=== PATIENT | female | born 1940 | race Caucasian/White ===

== ENCOUNTER 2016-09-01 08:43 | Inpatient (IN) | payer MEDICARE ==
[~2016-09-01] VITALS: Ht 154.9 cm; Wt 76.3 kg
[2016-09-01] VITALS (18 sets, daily range): BP systolic 113–150; BP diastolic 52–82
[2016-09-01 09:26] LABS: MEAN PLATELET VOLUME 12.2 FL (6.0-9.5); PLATELET COUNT 185 10^3uL (150-450); WHITE BLOOD COUNT 3.09 10^3uL (4.0-11.0)
[2016-09-01 09:36] LABS: MEAN CORPUSCULAR HEMOGLOBIN 20.1 PG (26.0-34.0); MEAN CORPUSCULAR VOLUME 72 FL (80-100)
[2016-09-01 09:38] LABS: ALBUMIN 3.6 g/dL (3.4-5.0); CALCULATED IONIZED CALCIUM 3.9 mg/dL (3.8-4.6); TOTAL PROTEIN 6.9 g/dL (6.4-8.5)
[2016-09-01 09:44] LABS: BAND NEUTROPHILS % 1 % (0-6); LYMPHOCYTES # 0.8 #; MONOCYTES # 0.3 #; MONOCYTES % 11 % (3-11); SEGMENTED NEUTROPHILS % 58 % (51-67)
[2016-09-01 09:45] LABS: ANISOCYTOSIS SLIGHT; EOSINOPHILS % 0 % (0-4); HYPOCHROMASIA SLIGHT; MICROCYTOSIS MODERATE; RBC MORPH SEE REFERENCE (NORMAL); TOTAL CELLS COUNTED 100
[2016-09-01] MEDS ORDERED: ONDANSETRON 2 MG/ML (Z0FRAN) 2 ML VIAL IV PRN (11:35)
[2016-09-01] MEDS ORDERED: NS FLUSH 10 ML PRN IV (12:00)
[2016-09-01] MEDS ORDERED: NS FLUSH 3 ML PRN IV (12:00)
[2016-09-01] MEDS ORDERED: SODIUM CHLORIDE 250 ML ONE (12:32)
[2016-09-01] MEDS ORDERED: SODIUM CHLORIDE 250 ML IV PRN (12:35)
[2016-09-01] MEDS: ALBUTEROL 0.083% NEB SOLUTION 2.5 MG/3 ML VIAL INH SCH ×3 (12:50→20:24)
[2016-09-01] MEDS: ACETAMINOPHEN 325 MG TAB (TYLENOL) PO PRN (23:41)
[2016-09-02] VITALS (11 sets, daily range): BP systolic 131–158; BP diastolic 58–89
[2016-09-02] MEDS: ALBUTEROL 0.083% NEB SOLUTION 2.5 MG/3 ML VIAL INH SCH ×5 (01:08→23:04)
[2016-09-02 06:33] LABS: MEAN PLATELET VOLUME 11.7 FL (6.0-9.5); PLATELET COUNT 156 10^3uL (150-450); WHITE BLOOD COUNT 2.63 10^3uL (4.0-11.0)
[2016-09-02] MEDS ORDERED: SIMETHICONE 40 MG/0.6 ML (MYLICON DROPS) ORAL SYRINGE ONE (06:41)
[2016-09-02] MEDS ORDERED: LIDOCAINE 4% TOPICAL 4.5 ML SYR ONE (06:41)
[2016-09-02 07:00] LABS: MEAN CORPUSCULAR HEMOGLOBIN 22.2 PG (26.0-34.0); MEAN CORPUSCULAR VOLUME 74 FL (80-100)
[2016-09-02 07:25] LABS: ALBUMIN 3.3 g/dL (3.4-5.0); ANION GAP 13.9 MEQ/L (3-15); CALCULATED IONIZED CALCIUM 4.2 mg/dL (3.8-4.6); MAGNESIUM* 2.2 mg/dL (1.6-2.3); PHOSPHORUS 4.1 mg/dL (2.4-4.9); TOTAL PROTEIN 6.5 g/dL (6.4-8.5)
[2016-09-02] MEDS ORDERED: LACTATED RINGERS 1,000 ML IV ONE (07:31)
[2016-09-02] MEDS ORDERED: ALFENTANIL 500 MCG/ML (ALFENTA) 5 ML AMP IV ONE (07:34)
[2016-09-02] MEDS ORDERED: MIDAZOLAM 2 MG/2 ML (VERSED) VIAL ONE (07:34)
[2016-09-02] MEDS ORDERED: PROPOFOL 20 ML IV ONE (07:34)
[2016-09-02 07:36] LABS: BAND NEUTROPHILS % 4 % (0-6); EOSINOPHILS % 0 % (0-4); LYMPHOCYTES # 0.7 #; MONOCYTES # 0.2 #; MONOCYTES % 11 % (3-11); SEGMENTED NEUTROPHILS % 60 % (51-67); TOTAL CELLS COUNTED 100
[2016-09-02 07:37] LABS: ANISOCYTOSIS SLIGHT; HYPOCHROMASIA SLIGHT; MICROCYTOSIS SLIGHT; RBC MORPH SEE REFERENCE (NORMAL)
[2016-09-02] MEDS ORDERED: OMEPRAZOLE 20 MG PO SCH (09:00)
[2016-09-02] MEDS: meTOprolol TARTRATE 25 MG (LOPRESSOR) TABLET PO SCH ×2 (09:38→17:31)
[2016-09-02] MEDS: LEVOTHYROXINE 50 MCG (LEVOTHROID) TABLET PO SCH (09:38)
[2016-09-02] MEDS: PANTOPRAZOLE 40 MG (PROTONIX) TAB PO SCH (09:38)
[2016-09-02] MEDS: NS FLUSH 3 ML DAILY IV SCH (09:39)
[2016-09-02] MEDS: POTASSIUM CHLORIDE ER 20 MEQ TABLET PO SCH ×2 (12:36→17:31)
[2016-09-02] MEDS: FERROUS SULFATE 220 MG/5 ML PO SCH (17:31)
[2016-09-02] MEDS ORDERED: QUEtiapine 50 MG (SEROquel) TAB IMMEDIATE RELEASE PO SCH (21:00)
[2016-09-03] MEDS: ALBUTEROL 0.083% NEB SOLUTION 2.5 MG/3 ML VIAL INH SCH ×3 (04:03→15:13)
[2016-09-03 06:23] LABS: MEAN PLATELET VOLUME 12.4 FL (6.0-9.5); PLATELET COUNT 159 10^3uL (150-450)
[2016-09-03] MEDS: LEVOTHYROXINE 50 MCG (LEVOTHROID) TABLET PO SCH (06:30)
[2016-09-03] MEDS: PANTOPRAZOLE 40 MG (PROTONIX) TAB PO SCH (06:30)
[2016-09-03 06:34] LABS: MEAN CORPUSCULAR HEMOGLOBIN 22.1 PG (26.0-34.0); MEAN CORPUSCULAR HGB CONC 29.6 g/dL (31.0-37.0); MEAN CORPUSCULAR VOLUME 75 FL (80-100)
[2016-09-03 06:41] LABS: BAND NEUTROPHILS % 1 % (0-6); EOSINOPHILS % 1 % (0-4); LYMPHOCYTES # 1.7 #; MONOCYTES # 0.1 #; MONOCYTES % 7 % (3-11); RBC MORPH SEE REFERENCE (NORMAL); SEGMENTED NEUTROPHILS % 33 % (51-67); TOTAL CELLS COUNTED 100
[2016-09-03 06:42] LABS: ANISOCYTOSIS MODERATE; HYPOCHROMASIA SLIGHT; POIKILOCYTOSIS SLIGHT
[2016-09-03 06:59] LABS: ALBUMIN 3.3 g/dL (3.4-5.0); ANION GAP 12.6 MEQ/L (3-15); PHOSPHORUS 3.5 mg/dL (2.4-4.9)
[2016-09-03] MEDS ORDERED: LACTATED RINGERS 1,000 ML IV SCH (07:30)
[2016-09-03 08:32] VITALS: BP 149/88
[2016-09-03] MEDS: NS FLUSH 3 ML DAILY IV SCH (09:00)
[2016-09-03] MEDS: meTOprolol TARTRATE 25 MG (LOPRESSOR) TABLET PO SCH (09:30)
[2016-09-03] MEDS: FERROUS SULFATE 220 MG/5 ML PO SCH (09:30)
[2016-09-03] MEDS: ACETAMINOPHEN 325 MG TAB (TYLENOL) PO PRN (09:30)
[2016-09-03] MEDS ORDERED: IRON SUCROSE 200 MG in NORMAL SALINE 150 ML IV ONE (13:00)
[2016-09-03 16:00] VITALS: BP 150/70
== END 2016-09-03 17:12 | disposition home or self-care (01) | DRG 812 ==
LOC: EDUNIT# 08:43 → ED 08:45 → MED/SURG 10:48
PROVIDERS: ADMIT Family Medicine; ATTEND Family Medicine
PROC: 0DJ08ZZ Inspection of Upper Intestinal Tract, Via Natural or Artificial Opening Endoscopic (ICD-10-PCS; principal; 2016-09-02)
DX: D50.0 Iron deficiency anemia secondary to blood loss (chronic) (principal); J10.1 Influenza due to other identified influenza virus with other respiratory manifestations; I10 Essential (primary) hypertension; E03.9 Hypothyroidism, unspecified; E87.6 Hypokalemia; E78.5 Hyperlipidemia, unspecified; R20.0 Anesthesia of skin; K44.9 Diaphragmatic hernia without obstruction or gangrene; K21.9 Gastro-esophageal reflux disease without esophagitis; K57.30 Diverticulosis of large intestine without perforation or abscess without bleeding; B97.89 Other viral agents as the cause of diseases classified elsewhere; Z79.82 Long term (current) use of aspirin; Z87.19 Personal history of other diseases of the digestive system; Z95.3 Presence of xenogenic heart valve
CPT/HCPCS: 36415; 36430; 70450; 71020; 80053; 80069; 83735; 83880; 84100; 84443; 84484; 85018; 85025; 85610; 86850; 86900; 86901; 86920; 87486; 87581; 87633; 87798; 93005; 93010; 94640; 99284; 99285

== ENCOUNTER → 2016-09-01 | Outpatient (CLI) | payer MEDICARE | LOC: EMS 08:35 | PROVIDERS: ATTEND Emergency Medicine | DX: I63.9 Cerebral infarction, unspecified (principal); Z86.73 Personal history of transient ischemic attack (TIA), and cerebral infarction without residual deficits ==

== ENCOUNTER 2016-09-05 10:00 | Outpatient (RCR) | payer MEDICARE ==
[~2016-09-05] VITALS: Ht 154.9 cm; Wt 76.7 kg
[~2016-09-05 10:00] MED LIST: AC325T PO; ASCO10006 PO; ASPI-860 PO; ASPI-894 PO; ASPI-9 PO; ATOR10TA PO; BENZ-13 PO; CALC-140 PO; CHOL200014 PO; CLOP75TA3 PO; CYAN100072 PO; DOCU100T2 PO; DOCU240C24 PO; FURO20TA4 PO; IRON100V2 IV; IRON1CAP31 PO; LVT.05T PO; MAG30ORA PO; MECL-105 PO; METO25TA2 PO; METO25TA60 PO; MULT-301 PO; NTR.4SL SL; OMEG1CAP58 PO; OMEP20CA6 PO; PITA2TAB PO; POLY17PO6 PO; POTA10CA2 PO; QTP25T PO; QUET50TA21 PO; RAMI5CAP19 PO; TICA90TA PO; TRAM-25 PO; TRM50T PO; [UNRECOGNIZED DRUG - CODE] PO; [UNRECOGNIZED DRUG - CODE] PO
[2016-09-05] MEDS ORDERED: NS FLUSH 3 ML PRN IV (10:15)
[2016-09-05] MEDS ORDERED: NS FLUSH 10 ML PRN IV (10:15)
[2016-09-05] MEDS ORDERED: IRON SUCROSE 200 MG in NORMAL SALINE 150 ML IV ONE (10:15)
[2016-09-05 11:52] VITALS: BP 124/71
== END 2016-12-04 | disposition home or self-care (01) ==
PROVIDERS: ATTEND Family Medicine
DX: D50.9 Iron deficiency anemia, unspecified (principal)
CPT/HCPCS: 96365; J1756; J7050; 36000

== ENCOUNTER → 2016-09-21 | Outpatient (CLI) | payer MEDICARE ==
[2016-09-21 15:20] LABS: MEAN PLATELET VOLUME 10.2 FL (6.0-9.5); WHITE BLOOD COUNT 5.87 10^3uL (4.0-11.0)
[2016-09-21 15:22] LABS: MEAN CORPUSCULAR HEMOGLOBIN 25.2 PG (26.0-34.0); MEAN CORPUSCULAR HGB CONC 30.6 g/dL (31.0-37.0)
== END ==
LOC: LAB 15:07
PROVIDERS: ATTEND Surgery
DX: D64.9 Anemia, unspecified (principal)
CPT/HCPCS: 36415; 85027

== ENCOUNTER → 2016-09-30 | Outpatient (CLI) | payer MEDICARE ==
[2016-09-30 10:26] LABS: BASOPHILS % (AUTO) 1 % (0-2); EOSINOPHILS # (AUTO) 0.2 10^3uL; EOSINOPHILS % (AUTO) 3 % (0-4); LYMPHOCYTES # (AUTO) 1.1 X10^3; MEAN CORPUSCULAR HGB CONC 32.1 g/dL (31.0-37.0); MEAN CORPUSCULAR VOLUME 82 FL (80-100); MEAN PLATELET VOLUME 11.2 FL (6.0-9.5); MONOCYTES # (AUTO) 0.5 X10^3; MONOCYTES % (AUTO) 9 % (3-11); NEUTROPHILS # (AUTO) 3.1 X10^3; NEUTROPHILS % (AUTO) 63 % (51-67); PLATELET COUNT 185 10^3uL (150-450); WHITE BLOOD COUNT 4.92 10^3uL (4.0-11.0)
[2016-09-30 10:27] LABS: MEAN CORPUSCULAR HEMOGLOBIN 26.3 PG (26.0-34.0)
== END ==
LOC: LAB 10:12
PROVIDERS: ATTEND Internal Medicine
DX: D50.8 Other iron deficiency anemias (principal)
CPT/HCPCS: 36415; 85025

== ENCOUNTER 2016-10-02 07:40 | Day surgery (SDC) | payer MEDICARE ==
[~2016-10-02] VITALS: Ht 154.9 cm; Wt 72.0 kg
[~2016-10-02 07:40] MED LIST changes: -AC325T PO; -ASCO10006 PO; -ASPI-860 PO; -ASPI-894 PO; -ASPI-9 PO; -ATOR10TA PO; -BENZ-13 PO; -CALC-140 PO; -CHOL200014 PO; -CLOP75TA3 PO; -CYAN100072 PO; -DOCU100T2 PO; -DOCU240C24 PO; -FURO20TA4 PO; -IRON100V2 IV; -IRON1CAP31 PO; +LACTATED RINGERS 1,000 ML IV SCH; -LVT.05T PO; -MAG30ORA PO; -MECL-105 PO; -METO25TA2 PO; -METO25TA60 PO; -MULT-301 PO; -NTR.4SL SL; -OMEG1CAP58 PO; -OMEP20CA6 PO; -PITA2TAB PO; -POLY17PO6 PO; -POTA10CA2 PO; -QTP25T PO; -QUET50TA21 PO; -RAMI5CAP19 PO; +SODIUM CHLORIDE FLUSH 3 ML SYR IV PRN; -TICA90TA PO; -TRAM-25 PO; -TRM50T PO; -[UNRECOGNIZED DRUG - CODE] PO; -[UNRECOGNIZED DRUG - CODE] PO
[2016-10-02 07:54] VITALS: BP 142/74
[2016-10-02] MEDS ORDERED: MIDAZOLAM 2 MG/2 ML (VERSED) VIAL ONE (08:24)
[2016-10-02] MEDS ORDERED: ALFENTANIL 500 MCG/ML (ALFENTA) 5 ML AMP IV ONE (08:24)
[2016-10-02] MEDS ORDERED: PROPOFOL 20 ML IV ONE (08:24)
[2016-10-02] MEDS ORDERED: SODIUM CHLORIDE FLUSH 100 ML ONE (09:17)
[2016-10-02 09:42] VITALS: BP 103/67
[2016-10-02] MEDS ORDERED: SIMETHICONE 20 MG/0.3 ML ONE (09:44)
[2016-10-02 10:00] VITALS: BP 129/76
== END 2016-10-02 10:10 | disposition home or self-care (01) ==
LOC: ASC 07:40
PROVIDERS: ATTEND Surgery
DX: D64.9 Anemia, unspecified (principal); D12.0 Benign neoplasm of cecum; K63.5 Polyp of colon; K57.30 Diverticulosis of large intestine without perforation or abscess without bleeding; Z87.19 Personal history of other diseases of the digestive system
CPT/HCPCS: 45390; 88305; A9270; J2250; J7120

== ENCOUNTER → 2016-10-26 | Outpatient (CLI) | payer MEDICARE ==
[~2016-10-26] MED LIST changes: +AC325T PO; +ASCO10006 PO; +ASPI-860 PO; +ASPI-894 PO; +ASPI-9 PO; +ATOR10TA PO; +BENZ-13 PO; +CALC-140 PO; +CHOL200014 PO; +CLOP75TA3 PO; +CYAN100072 PO; +DOCU100T2 PO; +DOCU240C24 PO; +FURO20TA4 PO; +IRON100V2 IV; +IRON1CAP31 PO; -LACTATED RINGERS 1,000 ML IV SCH; +LVT.05T PO; +MAG30ORA PO; +MECL-105 PO; +METO25TA2 PO; +METO25TA60 PO; +MULT-301 PO; +NTR.4SL SL; +OMEG1CAP58 PO; +OMEP20CA6 PO; +PITA2TAB PO; +POLY17PO6 PO; +POTA10CA2 PO; +QTP25T PO; +QUET50TA21 PO; +RAMI5CAP19 PO; -SODIUM CHLORIDE FLUSH 3 ML SYR IV PRN; +TICA90TA PO; +TRAM-25 PO; +TRM50T PO; +[UNRECOGNIZED DRUG - CODE] PO; +[UNRECOGNIZED DRUG - CODE] PO
[2016-10-26 13:07] LABS: BASOPHILS % (AUTO) 1 % (0-2); EOSINOPHILS # (AUTO) 0.2 10^3uL; EOSINOPHILS % (AUTO) 4 % (0-4); LYMPHOCYTES # (AUTO) 1.3 X10^3; MEAN CORPUSCULAR HGB CONC 32.7 g/dL (31.0-37.0); MEAN CORPUSCULAR VOLUME 86 FL (80-100); MEAN PLATELET VOLUME 10.9 FL (6.0-9.5); MONOCYTES # (AUTO) 0.4 X10^3; MONOCYTES % (AUTO) 10 % (3-11); NEUTROPHILS # (AUTO) 2.4 X10^3; NEUTROPHILS % (AUTO) 56 % (51-67); PLATELET COUNT 168 10^3uL (150-450); WHITE BLOOD COUNT 4.32 10^3uL (4.0-11.0)
[2016-10-26 13:17] LABS: ALBUMIN 4.2 g/dL (3.4-5.0); ANION GAP 15.2 MEQ/L (3-15); CALCULATED IONIZED CALCIUM 4.1 mg/dL (3.8-4.6); TOTAL PROTEIN 7.5 g/dL (6.4-8.5)
[2016-10-26 18:18] LABS: IRON 85 ug/dL (50-170); UNBOUND IRON CONTENT 237 ug/dl (126-382)
== END ==
LOC: LAB 12:56
PROVIDERS: ATTEND Internal Medicine Hematology & Oncology
DX: D50.9 Iron deficiency anemia, unspecified (principal)
CPT/HCPCS: 36415; 80053; 82728; 83540; 83550; 85025